=== PATIENT | male | born 1955 | race Caucasian/White ===

== ENCOUNTER 2018-12-13 11:51 | Emergency (ER) | payer OTHER ==
[2018-12-13 12:09] VITALS: BP 158/94
--- NOTE | 2018-12-13 12:38 | EDM.PDOC ---
ED HPI GENERAL MEDICAL PROBLEM - General Chief Complaint: Upper Extremity Injury/Pain Stated Complaint: RIGHT ARM PAIN Time Seen by Provider: 12/13/18 12:06 Source of Information: Reports: Patient, RN Notes Reviewed History Limitations: Reports: No Limitations - History of Present Illness INITIAL COMMENTS - FREE TEXT/NARRATIVE: Patient is a 63-year-old male who presents to the ED for the evaluation of a red and swollen right wrist and elbow. The patient notes a history of gout. He states he went to bed last night just fine, and woke up with this swelling to his elbow and wrist. He denies any trauma or injury sustained yesterday. The patient states he uses the [place] [facility] for [place] care [place]. He denies any fevers or chills at this time, he states it is painful to move the joints in any particular motion at all. The joints are warm to the touch. - Related Data Allergies Allergy/AdvReac Type Severity Reaction Status Date / Time No Known Allergies Allergy Verified 06/03/16 14:53 Home Meds: Home Meds Allopurinol [Zyloprim] 100 mg PO DAILY 04/29/16 [History] Atenolol 100 mg PO DAILY 04/29/16 [History] Gemfibrozil 600 mg PO BID 04/29/16 [History] Omeprazole 20 mg PO DAILY 04/29/16 [History] atorvaSTATin Calcium [Atorvastatin Calcium] 10 mg PO BEDTIME 04/29/16 [History] glipiZIDE [Glucotrol] 5 mg PO BID 04/29/16 [History] metFORMIN HCl [Metformin HCl] 1,000 mg PO BID 04/29/16 [History] Acetaminophen/oxyCODONE [Percocet 325-5 MG] 1 tab PO Q4H PRN #20 tablet [Rx] predniSONE [Deltasone] 20 mg PO ASDIRECTED #15 tablet 12/13/18 [Rx] Past Medical History HEENT History: Reports: Impaired Vision Cardiovascular History: Reports: High Cholesterol, Hypertension Gastrointestinal History: Reports: GERD Genitourinary History: Reports: Renal Calculus, Other (See Below) Other Genitourinary History: adrenal gland tumor removal Musculoskeletal History: Reports: Fracture, Gout Other Musculoskeletal History: right ankle fracture. Endocrine/Metabolic History: Reports: Diabetes, Type II, Obesity/BMI 30+ Dermatologic History: Reports: Other (See Below) Other Dermatologic History: tumors removed underneath skin - Infectious Disease History Infectious Disease History: Reports: Chicken Pox, Measles - Past Surgical History HEENT Surgical History: Reports: Adenoidectomy, Oral Surgery, Tonsillectomy Endocrine Surgical History: Reports: Adrenal Gland Social & Family History - Family History Family Medical History: Noncontributory - Tobacco Use Smoking Status *Q: Never Smoker - Caffeine Use Caffeine Use: Reports: Coffee, Tea - Recreational Drug Use Recreational Drug Use: No - Living Situation & Occupation Living situation: Reports: , with Family Occupation: Employed Review of Systems - Review of Systems Review Of Systems: See Below Constitutional: Denies: Chills, Fever Eyes: Reports: No Symptoms Ears: Reports: No Symptoms Nose: Reports: No Symptoms Mouth/Throat: Reports: No Symptoms Respiratory: Reports: No Symptoms Cardiovascular: Reports: No Symptoms GI/Abdominal: Reports: No Symptoms Genitourinary: Reports: No Symptoms Musculoskeletal: Reports: Joint Pain (R wrist and elbow), Joint Swelling (R wrist and elbow) Skin: Reports: Erythema (Right wrist and elbow, with warmth and swelling noted) ED EXAM, GENERAL - Physical Exam Exam: See Below Exam Limited By: No Limitations General Appearance: Alert, WD/WN, No Apparent Distress Respiratory/Chest: No Respiratory Distress, Lungs Clear, Normal Breath Sounds, No Accessory Muscle Use, Chest Non-Tender Cardiovascular: Normal Peripheral Pulses, Regular Rate, Rhythm, No Murmur Peripheral Pulses: 3+: Radial (L), Radial (R) Extremities: Normal Inspection (Right wrist and elbow, with warmth, redness, and swelling noted), Normal Capillary Refill, Limited Range of Motion (of right wrist and elbow d/t pain, 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 No: Ecchymosis, Wound/Incision Course - Vital Signs Last Recorded V/S: Last Vital Signs Temp 98.5 F 12/13/18 12:06 Pulse 113 H 12/13/18 12:06 Resp 12 12/13/18 12:06 BP 158/94 H 12/13/18 12:06 Pulse Ox 96 12/13/18 12:06 - Re-Assessments/Exams Free Text/Narrative Re-Assessment/Exam: 12/13/18 12:56 Patient presents to the ED for evaluation of a red swollen and warm right wrist and elbow. His symptoms are consistent with gout at this time. We'll provide the patient with prescription for prednisone and discharge home with general recommendations. He should follow up with his primary care provider at the conclusion of the prednisone, he is understanding of this. Departure - Departure Time of Disposition: 12:35 Disposition: Home, Self-Care 01 Condition: Fair Clinical Impression: Gout attack Qualifiers: Gout site: multiple sites Gout etiology: unspecified cause Qualified Code(s): M10.9 - Gout, unspecified - Discharge Information *PRESCRIPTION DRUG MONITORING PROGRAM REVIEWED*: No *COPY OF PRESCRIPTION DRUG MONITORING REPORT IN PATIENT SARINA: No Prescriptions: predniSONE [Deltasone] 20 mg PO ASDIRECTED #15 tablet Instructions: Gout, [id number] Referrals: Laurence Wahl MD [Primary Care Provider] - Forms: ED Department Discharge Additional Instructions: You have been evaluated in the ED today for your right wrist and elbow pain. Your symptoms are consistent with gout. You have been provided with a prescription for prednisone, please take as directed. This has been electronically sent to the [facility] pharmacy located near [facility]. They are open for noon to 4 PM today only. Recommend that you follow up at the [place] after the course of treatment to make sure that you do not need further treatment. Please take your other medications as previously prescribed by your primary care provider. Please return to the ED if your symptoms should change or worsen.
== END 2018-12-13 12:45 | disposition home or self-care (01) ==
LOC: JD.ED 11:51
DX: M10.9 Gout, unspecified (principal); E78.00 Pure hypercholesterolemia, unspecified; I10 Essential (primary) hypertension; K21.9 Gastro-esophageal reflux disease without esophagitis; E11.9 Type 2 diabetes mellitus without complications; Z79.84 Long term (current) use of oral hypoglycemic drugs; Z79.899 Other long term (current) drug therapy
CPT/HCPCS: 99283

== ENCOUNTER 2020-06-06 14:24 | Emergency (ER) | payer OTHER ==
--- NOTE | 2020-06-06 15:08 | EDM.PDOC ---
ED HPI GENERAL MEDICAL PROBLEM - General Chief Complaint: Respiratory Problem Stated Complaint: SOB [facility] Time Seen by Provider: 06/06/20 15:07 Source of Information: Reports: Patient History Limitations: Reports: No Limitations - History of Present Illness INITIAL COMMENTS - FREE TEXT/NARRATIVE: 64-year-old male presents to the ED at the request [facility] due to suspected cellulitis left foot and developing gangrene left fifth toe. Patient is a known type II diabetic for greater than 15 years and is known not to be very compliant with medication or diet. He reports he is never been on insulin. He denies having any pain in either foot. He walks with a wide type shoe. He started to feel unwell within the last 2 days. Noted fever but no defined chills. No appetite no nausea vomiting or diarrhea. Mild headache mild increased dyspnea with productive cough. Denies any chest pain. Patient is very warm to palpation on exam. He has not checked his blood sugars for several days. Onset: Gradual Onset Date: 06/04/20 (To feel unwell 2 days ago he believes with fever and weakness.) Duration: Day(s):, Getting Worse Location: Reports: Chest (Has a cough but denies any sputum production.), Lower Extremity, Left (Leg and erythema left lower extremity and obvious abnormality of the left great toe with swelling and blackening.) Quality: Reports: Other (Any significant pain in either lower extremity.) Severity: Moderate Improves with: Reports: None Worsens with: Reports: Other Context: Denies: Activity (Left foot pain with walking.), Exercise, Lifting, Sick Contact, Trauma, Other Associated Symptoms: Reports: Cough (Productive), Fever/Chills, Headaches, Loss of Appetite (Denies any chills but definite fever.), Malaise, Shortness of Breath, Weakness. 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: Reports: Other (see below) (None.) - Related Data Allergies Allergy/AdvReac Type Severity Reaction Status Date / Time No Known Allergies Allergy Verified 06/06/20 14:47 Home Meds: Home Meds Allopurinol [Zyloprim] 100 mg PO DAILY 04/29/16 [History] Gemfibrozil 600 mg PO BID 04/29/16 [History] Omeprazole 20 mg PO DAILY 04/29/16 [History] atenoloL [Atenolol] 100 mg PO DAILY 04/29/16 [History] atorvaSTATin Calcium [Atorvastatin Calcium] 10 mg PO BEDTIME 04/29/16 [History] glipiZIDE [Glucotrol] 5 mg PO BID 04/29/16 [History] metFORMIN HCl [Metformin HCl] 1,000 mg PO BID 04/29/16 [History] Acetaminophen/oxyCODONE [Percocet 325-5 MG] 1 tab PO Q4H PRN #20 tablet 06/03/16 [Rx] predniSONE [Deltasone] 20 mg PO ASDIRECTED #15 tablet 12/13/18 [Rx] Past Medical History HEENT History: Reports: Impaired Vision Cardiovascular History: Reports: High Cholesterol, Hypertension Gastrointestinal History: Reports: GERD Genitourinary History: Reports: Renal Calculus, Other (See Below) Other Genitourinary History: adrenal gland tumor removal Musculoskeletal History: Reports: Fracture, Gout Other Musculoskeletal History: right ankle fracture. Endocrine/Metabolic History: Reports: Diabetes, Type II (for > 15 years. Has always been on medication. Never insulin.), Obesity/BMI 30+ Dermatologic History: Reports: Other (See Below) Other Dermatologic History: tumors removed underneath skin - Infectious Disease History Infectious Disease History: Reports: Chicken Pox, Measles - Past Surgical History HEENT Surgical History: Reports: Adenoidectomy, Oral Surgery, Tonsillectomy Endocrine Surgical History: Reports: Adrenal Gland Social & Family History - Family History Family Medical History: No Pertinent Family History - Caffeine Use Caffeine Use: Reports: Coffee, Tea - Living Situation & Occupation Living situation: Reports: , with Family Occupation: Employed [employer] [facility] [employer] - Review of Systems Review Of Systems: See Below Constitutional: Reports: Fever, Malaise, Weakness, Fatigue, Decreased Appetite HEENT: Reports: Other (0 acuity waxes and wanes.) Respiratory: Reports: Shortness of Breath, Cough. Denies: Wheezing, Pleuritic Chest Pain, Sputum, Hemoptysis Cardiovascular: Reports: Blood Pressure Problem, Dyspnea on Exertion (Chronic edema both lower extremities.), Edema. Denies: Chest Pain (Nonproductive), Claudication, Lightheadedness, Orthopnea Endocrine: Reports: Fatigue GI/Abdominal: Reports: Other (Obesity. He believes he has had his gallbladder removed). Denies: Abdominal Pain : Reports: Frequency, Other (Sure you are x3.) Musculoskeletal: Reports: Joint Pain (Knees hips low back neck at times) Skin: Reports: Other (Parent redness swelling left foot and obvious discoloration left fifth toe) Neurological: Reports: Difficulty Walking (Due to left foot discomfort.). Denies: Confusion, Dizziness, Headache, Numbness, Syncope, Tingling Psychiatric: Reports: No Symptoms Hematologic/Lymphatic: Reports: No Symptoms Immunologic: Reports: No Symptoms ED EXAM, GENERAL - Physical Exam Exam: See Below Exam Limited By: No Limitations General Appearance: Alert, WD/WN, Anxious, Mild Distress, Other (Temperature is 37.3 but he feels much warmer than this on palpation. Heart rate at the bedside is 118/min sinus tachycardia on the monitor respiratory to 23 to 25/min with O2 sats of 96% room air BP 131/48.) Eye Exam: Bilateral Eye: Normal Inspection (No blepharal pallor or scleral icterus.) Ears: Normal TMs Throat/Mouth: Other (Tongue is dry and coated. The oropharynx is otherwise showing no signs of infection) Head: Atraumatic, Normocephalic, Other (Are no outward signs of head or facial trauma. Facial cheeks are flushed and warm to palpation) Neck: Normal Inspection, Limited Range of Motion (This on lateral rotation. Loss of 10 degrees lateral flexion). No: Carotid Bruit, Lymphadenopathy (L) ( and 5 degrees flexion.), Lymphadenopathy (R), Thyromegaly Respiratory/Chest: Chest Non-Tender, Respiratory Distress, Decreased Breath Sounds (Apnea at rest.), Rales ( Decreased breath sounds to the lower 30% lung fitzpatrick bilaterally.). No: Lungs Clear, Normal Breath Sounds ( Scattered crackles both lower lung fitzpatrick.) Cardiovascular: No Edema, No Gallop, No Murmur, No Rub, Tachycardia (Sinus tachycardia on the monitor.). No: Normal Peripheral Pulses Peripheral Pulses: 1+: Posterior Tibial (L), Posterior Tibial (R), Dorsalis Pedis (L), Dorsalis Pedis (R), 2+: Carotid (L), Carotid (R) GI/Abdominal: Normal Bowel Sounds, Soft, Non-Tender, No Organomegaly, No Distention, Other (Well-healed right upper quadrant surgical incision probably from a cholecystectomy done open. Patient is unsure. Patient's abdominal girth limits ability to palpate solid organs.). No: Guarding, Rigid, Rebound, Tender, Abnormal Bowel Sounds Back Exam: Normal Inspection, Full Range of Motion, Decreased Range of Motion (Complains of some pain on sitting him up on the gurney in his lower back.). No: CVA Tenderness (L), CVA Tenderness (R) Extremities: Other (Patient has 2-3+ pitting edema both lower extremities. Slightly worse on the left as compared to the right. He has an obvious cellulitis of the left lower extremity involving plantar surface of the foot dorsal surface of the foot and distal one third of the leg. There is marked edema and gangrene developing in the left fifth toe) Neurological: Alert, Oriented, CN II-XII Intact, Normal Cognition Psychiatric: Flat Affect Skin Exam: Warm, Erythema (Foot left foot with evidence of developing cellulitis), Increased Warmth #1 Interpretation EKG Date: 06/06/20 Time: 15:13 Rhythm: Other Rate (Beats/Min): 115 (Frequent unifocal PVCs in a bigeminal pattern.) Neoga: LAD-Left Neoga Deviation (Mild left axis deviation -9 degrees) P-Wave: Enlarged ST-T: Other (Mild ST segment depression in V5 and V6 and leads II and aVF concerning for apical inferior ischemia.) QT: Prolonged (Markedly prolonged) EKG Interpretation Comments: Abnormal ECG Course - Vital Signs Last Recorded V/S: Last Vital Signs Temp 37.3 C 06/06/20 14:42 Pulse 110 H 06/06/20 14:42 Resp 23 H 06/06/20 14:42 BP 131/48 L 06/06/20 14:42 Pulse Ox 96 06/06/20 14:42 - Orders/Labs/Meds Orders: Active Orders 24 hr Category Date Time Status Blood Glucose Check, Bedside [RC] ONETIME Care 06/06/20 15:21 Active EKG Documentation Completion [RC] STAT Care 06/06/20 15:15 Active EKG Documentation Completion [RC] STAT Care 06/06/20 18:03 Active CULTURE BLOOD [BC] Stat Lab 06/06/20 16:10 Received CULTURE BLOOD [BC] Stat Lab 06/06/20 16:18 Received GLUCOSE RANDOM [CHEM] Stat Lab 06/06/20 19:10 Ordered LACTIC ACID [CHEM] Stat Lab 06/06/20 19:08 Ordered URINALYSIS W/MICROSCOPIC [UA W/MICROSCOPIC] [URIN] Stat Lab 06/06/20 15:15 Ordered Magnesium Sulfate/Water [Magnesium Sulfate in Water Med 06/06/20 16:51 Active Premix] 4 gm Premix Bag 1 bag IV ONETIME Sodium Chloride 0.9% [Normal Saline] 1,000 ml Med 06/06/20 15:15 Active IV ASDIRECTED Sodium Chloride 0.9% [Normal Saline] 1,000 ml Med 06/06/20 18:15 Active IV ASDIRECTED Blood Culture x2 Reflex Set [OM.PC] Stat Oth 06/06/20 15:16 Ordered Medication Orders Sodium Chloride (Normal Saline) 1,000 mls @ 150 mls/hr IV ASDIRECTED [facility] Last Admin: 06/06/20 15:45 Dose: 150 mls/hr Documented by: [id number] Magnesium Sulfate 4 gm/ Premix 50 mls @ 12.5 mls/hr IV ONETIME ONE Stop: 06/06/20 20:50 Last Admin: 06/06/20 19:11 Dose: 12.5 mls/hr Documented by: [id number] Sodium Chloride (Normal Saline) 1,000 mls @ 500 mls/hr IV ASDIRECTED [facility] Last Admin: 06/06/20 19:11 Dose: 500 mls/hr Documented by: [id number] Labs: Laboratory Tests 06/06/20 06/06/20 06/06/20 Range/Units 15:36 15:36 15:36 WBC 8.82 (4.23-9.07) K/mm3 RBC 3.89 L (4.63-6.08) M/mm3 Hgb 10.1 L (13.7-17.5) gm/dl Hct 31.2 L (40.1-51.0) % MCV 80.2 D (79.0-92.2) fl MCH 26.0 (25.7-32.2) pg MCHC 32.4 (32.2-35.5) g/dl RDW Std Deviation 40.4 (35.1-43.9) fL Plt Count 190 (163-337) K/mm3 MPV 10.8 (9.4-12.3) fl Neutrophils % (Manual) 86 H (40-60) % Band Neutrophils % 5 (0-10) % Lymphocytes % (Manual) 5 L (20-40) % Atypical Lymphs % 0 % Monocytes % (Manual) 3 (2-10) % Eosinophils % (Manual) 1 (0.8-7.0) % Basophils % (Manual) 0 L (0.2-1.2) Toxic Granulation Few Platelet Estimate Adequate RBC Morph Comment Normal ESR (0-15) mm/hr PT 14.3 H (9.7-12.0) SECONDS INR 1.34 Sodium 128 L D (136-145) mEq/L Potassium 3.9 (3.5-5.1) mEq/L Chloride 95 L (98-107) mEq/L Carbon Dioxide 18 L (21-32) mEq/L Anion Gap 18.9 H (5-15) BUN 37 H (7-18) mg/dL Creatinine 3.9 H D (0.7-1.3) mg/dL Est Cr Clr Drug Dosing TNP Estimated GFR (MDRD) 16 (>60) mL/min BUN/Creatinine Ratio 9.5 L (14-18) Glucose 153 H (80-115) mg/dL POC Glucose (80-115) mg/dL Hemoglobin A1c (4.50-6.20) % Lactic Acid (0.4-2.0) mmol/L Uric Acid (3.5-7.2) mg/dL Calcium 8.0 L (8.5-10.1) mg/dL Magnesium 1.0 L (1.8-2.4) mg/dl Total Bilirubin 3.9 H (0.2-1.0) mg/dL AST 60 H (15-37) U/L ALT 28 (16-63) U/L Alkaline Phosphatase 153 H (46-116) U/L CK-MB (CK-2) (0-3.6) ng/ml Troponin I 0.311 H* (0.00-0.056) ng/mL C-Reactive Protein 47.4 H* (<1.0) mg/dL NT-Pro-B Natriuret Pep (0-125) pg/mL Total Protein 7.0 (6.4-8.2) g/dl Albumin 2.6 L (3.4-5.0) g/dl Globulin 4.4 gm/dL Albumin/Globulin Ratio 0.6 L (1-2) Ethyl Alcohol (0.00) gm% SARS-CoV-2 RNA (JEAN) (NEGATIVE) 06/06/20 06/06/20 06/06/20 Range/Units 15:36 15:36 15:36 WBC (4.23-9.07) K/mm3 RBC (4.63-6.08) M/mm3 Hgb (13.7-17.5) gm/dl Hct (40.1-51.0) % MCV (79.0-92.2) fl MCH (25.7-32.2) pg MCHC (32.2-35.5) g/dl RDW Std Deviation (35.1-43.9) fL Plt Count (163-337) K/mm3 MPV (9.4-12.3) fl Neutrophils % (Manual) (40-60) % Band Neutrophils % (0-10) % Lymphocytes % (Manual) (20-40) % Atypical Lymphs % % Monocytes % (Manual) (2-10) % Eosinophils % (Manual) (0.8-7.0) % Basophils % (Manual) (0.2-1.2) Toxic Granulation Platelet Estimate RBC Morph Comment ESR 65 H (0-15) mm/hr PT (9.7-12.0) SECONDS INR Sodium (136-145) mEq/L Potassium (3.5-5.1) mEq/L Chloride (98-107) mEq/L Carbon Dioxide (21-32) mEq/L Anion Gap (5-15) BUN (7-18) mg/dL Creatinine (0.7-1.3) mg/dL Est Cr Clr Drug Dosing Estimated GFR (MDRD) (>60) mL/min BUN/Creatinine Ratio (14-18) Glucose (80-115) mg/dL POC Glucose (80-115) mg/dL Hemoglobin A1c (4.50-6.20) % Lactic Acid 2.1 H* (0.4-2.0) mmol/L Uric Acid (3.5-7.2) mg/dL Calcium (8.5-10.1) mg/dL Magnesium (1.8-2.4) mg/dl Total Bilirubin (0.2-1.0) mg/dL AST (15-37) U/L ALT (16-63) U/L Alkaline Phosphatase (46-116) U/L CK-MB (CK-2) (0-3.6) ng/ml Troponin I (0.00-0.056) ng/mL C-Reactive Protein (<1.0) mg/dL NT-Pro-B Natriuret Pep 31098 H (0-125) pg/mL Total Protein (6.4-8.2) g/dl Albumin (3.4-5.0) g/dl Globulin gm/dL Albumin/Globulin Ratio (1-2) Ethyl Alcohol (0.00) gm% SARS-CoV-2 RNA (JEAN) (NEGATIVE) 06/06/20 06/06/20 06/06/20 Range/Units 15:36 15:36 15:36 WBC (4.23-9.07) K/mm3 RBC (4.63-6.08) M/mm3 Hgb (13.7-17.5) gm/dl Hct (40.1-51.0) % MCV (79.0-92.2) fl MCH (25.7-32.2) pg MCHC (32.2-35.5) g/dl RDW Std Deviation (35.1-43.9) fL Plt Count (163-337) K/mm3 MPV (9.4-12.3) fl Neutrophils % (Manual) (40-60) % Band Neutrophils % (0-10) % Lymphocytes % (Manual) (20-40) % Atypical Lymphs % % Monocytes % (Manual) (2-10) % Eosinophils % (Manual) (0.8-7.0) % Basophils % (Manual) (0.2-1.2) Toxic Granulation Platelet Estimate RBC Morph Comment ESR (0-15) mm/hr PT (9.7-12.0) SECONDS INR Sodium (136-145) mEq/L Potassium (3.5-5.1) mEq/L Chloride (98-107) mEq/L Carbon Dioxide (21-32) mEq/L Anion Gap (5-15) BUN (7-18) mg/dL Creatinine (0.7-1.3) mg/dL Est Cr Clr Drug Dosing Estimated GFR (MDRD) (>60) mL/min BUN/Creatinine Ratio (14-18) Glucose (80-115) mg/dL POC Glucose (80-115) mg/dL Hemoglobin A1c 8.50 H (4.50-6.20) % Lactic Acid (0.4-2.0) mmol/L Uric Acid 10.2 H (3.5-7.2) mg/dL Calcium (8.5-10.1) mg/dL Magnesium (1.8-2.4) mg/dl Total Bilirubin (0.2-1.0) mg/dL AST (15-37) U/L ALT (16-63) U/L Alkaline Phosphatase (46-116) U/L CK-MB (CK-2) 9.2 H (0-3.6) ng/ml Troponin I (0.00-0.056) ng/mL C-Reactive Protein (<1.0) mg/dL NT-Pro-B Natriuret Pep (0-125) pg/mL Total Protein (6.4-8.2) g/dl Albumin (3.4-5.0) g/dl Globulin gm/dL Albumin/Globulin Ratio (1-2) Ethyl Alcohol 0.00 (0.00) gm% SARS-CoV-2 RNA (JEAN) (NEGATIVE) 06/06/20 06/06/20 Range/Units 15:41 15:49 WBC (4.23-9.07) K/mm3 RBC (4.63-6.08) M/mm3 Hgb (13.7-17.5) gm/dl Hct (40.1-51.0) % MCV (79.0-92.2) fl MCH (25.7-32.2) pg MCHC (32.2-35.5) g/dl RDW Std Deviation (35.1-43.9) fL Plt Count (163-337) K/mm3 MPV (9.4-12.3) fl Neutrophils % (Manual) (40-60) % Band Neutrophils % (0-10) % Lymphocytes % (Manual) (20-40) % Atypical Lymphs % % Monocytes % (Manual) (2-10) % Eosinophils % (Manual) (0.8-7.0) % Basophils % (Manual) (0.2-1.2) Toxic Granulation Platelet Estimate RBC Morph Comment ESR (0-15) mm/hr PT (9.7-12.0) SECONDS INR Sodium (136-145) mEq/L Potassium (3.5-5.1) mEq/L Chloride (98-107) mEq/L Carbon Dioxide (21-32) mEq/L Anion Gap (5-15) BUN (7-18) mg/dL Creatinine (0.7-1.3) mg/dL Est Cr Clr Drug Dosing Estimated GFR (MDRD) (>60) mL/min BUN/Creatinine Ratio (14-18) Glucose (80-115) mg/dL POC Glucose 173 H (80-115) mg/dL Hemoglobin A1c (4.50-6.20) % Lactic Acid (0.4-2.0) mmol/L Uric Acid (3.5-7.2) mg/dL Calcium (8.5-10.1) mg/dL Magnesium (1.8-2.4) mg/dl Total Bilirubin (0.2-1.0) mg/dL AST (15-37) U/L ALT (16-63) U/L Alkaline Phosphatase (46-116) U/L CK-MB (CK-2) (0-3.6) ng/ml Troponin I (0.00-0.056) ng/mL C-Reactive Protein (<1.0) mg/dL NT-Pro-B Natriuret Pep (0-125) pg/mL Total Protein (6.4-8.2) g/dl Albumin (3.4-5.0) g/dl Globulin gm/dL Albumin/Globulin Ratio (1-2) Ethyl Alcohol (0.00) gm% SARS-CoV-2 RNA (JEAN) Negative (NEGATIVE) Meds: Medications Generic Name Dose Route Start Last Admin Trade Name Freq PRN Reason Stop Dose Admin Sodium Chloride 1,000 mls @ 150 mls/hr 06/06/20 15:15 06/06/20 15:45 Normal Saline IV 150 mls/hr ASDIRECTED SUDHIR Administration Magnesium Sulfate 4 gm/ Premix 50 mls @ 12.5 mls/hr 06/06/20 16:51 06/06/20 19:11 IV 06/06/20 20:50 12.5 mls/hr ONETIME ONE Administration Sodium Chloride 1,000 mls @ 500 mls/hr 06/06/20 18:15 06/06/20 19:11 Normal Saline IV 500 mls/hr ASDIRECTED SUDHIR Administration Discontinued Medications Generic Name Dose Route Start Last Admin Trade Name Netta PRN Reason Stop Dose Admin Acetaminophen 975 mg 06/06/20 15:21 06/06/20 15:45 Tylenol PO 06/06/20 15:22 975 mg ONETIME ONE Administration Furosemide 80 mg 06/06/20 18:04 06/06/20 19:11 Lasix IVPUSH 06/06/20 18:05 80 mg NOW ONE Administration Linezolid 600 mg/ Premix 300 mls @ 300 mls/hr 06/06/20 15:40 06/06/20 17:56 IV 06/06/20 16:39 300 mls/hr ONETIME ONE Administration Metronidazole 500 mg/ Premix 100 mls @ 100 mls/hr 06/06/20 15:42 06/06/20 16:23 IV 06/06/20 16:41 100 mls/hr ONETIME ONE Administration - Radiology Interpretation Free Text/Narrative:: 64-year-old male presents to the ED at the request of the [facility] here in [place]. Patient is a known type II diabetic who is noncompliant with treatment. He has had diabetes for greater than 15 years. Always treated with oral meds and never insulin. He presented to the clinic today due to fever chills and red swollen left foot. It is quite obvious that he has developed a cellulitis of the entire left lower foot and developing gangrene of the left fifth toe. He claims that he can still walk fairly normally with his wide [place] shoes denies neuropathy or pain in the lower extremity suggesting that he does not fact have peripheral neuropathy. He is febrile. He will require septic work-up. Blood cultures x2 including lactic acid. Covid screen chest x- ray urinalysis. He will be given Zosyn 600mg IV as soon as blood cultures x2 have been collected. Due to necrosis of the left fifth toe he will also be treated for possible anaerobic infection. Flagyl 500 mg IV. X-rays of the left foot to be obtained as well. She will require admission to hospital either here or elsewhere. It appears that he is likely going to need resection of the left toe once the infection comes under control. - Re-Assessments/Exams Free Text/Narrative Re-Assessment/Exam: 06/06/20 16:50 White count is normal at 8.82 however the differential reveals 86% neutrophils and 5% bands cells. Hemoglobin is low at 10.1 with hematocrit of 31.2. Platelet count normal 190,000. Sed rate is 65. PT is 14.3 with an INR of 1.34 i.e. auto anticoagulated. Sodium is low at 128 with a potassium of 3.9. Chloride is 95 with a bicarb of 18. Anion gap is elevated at 18.9. BUN is 37 with a creatinine of 3.9 and a GFR of only 16 i.e. stage IV chronic renal insufficiency. Glucose at the bedside is 173 in the lab was 153. Hemoglobin A1c is 8.50. Lactic acid is minimally elevated at 2.1. Uric acid is markedly elevated at 10.2 which may be contributing to renal insufficiency due to interstitial nephritis. Calcium is 8.0 with a magnesium low at 1.0. Bilirubin elevated at 3.9 with an AST of 60 and an ALT of 28. Alk phos today is elevated 153. Troponin I is elevated at 0.311 C-reactive protein 47.4 BNP 13,347 total protein is 7.0 with an albumin fraction low at 2.6 blood alcohol is 0.00 COVID- 19 screen is negative. 06/06/20 17:12 plain x-ray of the left foot has been completed. It reveals soft tissue air noted within the fifth digit. Findings are most likely due to prominent infection. Difficult to exclude underlying osteomyelitis. Scattered degenerative change within other toes are noted. Joint space narrowing is scattered within the midfoot. Diffuse soft tissue swelling is noted. Chest x- ray reveals heart size and mediastinum to be upper limits of normal for portable technique. Central lung markings slightly increased on the left side possibly due to pulmonary vascular congestion and less likely bronchitis. Lungs are otherwise clear other than scarring within the right lung base. 06/06/20 18:16 I have spoken with the patient and indicated that he has significant infection in his left fifth toe highly suggestive of bone infection or osteomyelitis and is likely going to lose the toe. The problem is he has multiple comorbidities with renal insufficiency, severe congestive heart failure, cellulitis of the left lower extremity that is going to have to be improved before he is a candidate for any kind of surgery. He remains very high risk. He therefore will have to be sent to a larger center and I did speak with Dr. Lomax--on-call hospitalist at [facility] in [place] and he is graciously accepted care of this patient. 06/06/20 19:18 I have ordered a repeat lactic acid and random glucose at this time. Paramedics will be her to transfer the patient to [place] by ground ambulance at approximately 1930 hrs. Departure - Departure Time of Disposition: 19:18 Disposition: DC/Tfer to [facility] 02 Condition: Serious Clinical Impression: Cellulitis of left lower extremity, Cellulitis of left foot, Gangrene of toe of left foot, Congestive heart failure, Lactic acidosis Type 2 diabetes mellitus Qualifiers: Diabetes mellitus supervisor intermediates insulin use: without supervisor intermediates use Diabetes mellitus complication status: with circulatory complication Diabetes mellitus complication detail: with peripheral angiopathy with gangrene Qualified Code(s): E11.52 - Type 2 diabetes mellitus with diabetic peripheral angiopathy with gangrene - Discharge Information *PRESCRIPTION DRUG MONITORING PROGRAM REVIEWED*: Not Applicable Referrals: Laurence Wahl MD [Primary Care Provider] - Forms: ED Department Discharge Additional Instructions: 64-year-old male presents to the ED with obvious severe cellulitis involving his left foot and lower extremity with a fever. Patient has multiple comorbidities including congestive heart failure. Renal insufficiency stage IV. Discovered to have mild lactic acidosis. Type 2 diabetes fairly well controlled. Early gangrene development left fifth toe. Due to multiple comorbidities and need for improvement in multiple modalities before he can become a surgical candidate to have the left toe removed he was sent to [facility] in [place] for definitive medical and surgical management. Sepsis Event Note (ED) - Evaluation Sepsis Screening Result: Possible Sepsis Risk - Focused Exam Vital Signs: Vital Signs Temp Pulse Resp BP Pulse Ox 06/06/20 14:42 37.3 C 110 H 23 H 131/48 L 96 - My Orders Last 24 Hours: My Active Orders 06/06/20 15:15 EKG Documentation Completion [RC] STAT URINALYSIS W/MICROSCOPIC [UA W/MICROSCOPIC] [URIN] Stat Sodium Chloride 0.9% [Normal Saline] 1,000 ml IV ASDIRECTED 06/06/20 15:16 Blood Culture x2 Reflex Set [OM.PC] Stat 06/06/20 15:21 Blood Glucose Check, Bedside [RC] ONETIME 06/06/20 16:10 CULTURE BLOOD [BC] Stat 06/06/20 16:18 CULTURE BLOOD [BC] Stat 06/06/20 16:51 Magnesium Sulfate/Water [Magnesium Sulfate in Water Premix] 4 gm Premix Bag 1 bag IV ONETIME 06/06/20 18:03 EKG Documentation Completion [RC] STAT 06/06/20 18:15 Sodium Chloride 0.9% [Normal Saline] 1,000 ml IV ASDIRECTED 06/06/20 19:08 LACTIC ACID [CHEM] Stat 06/06/20 19:10 GLUCOSE RANDOM [CHEM] Stat - Assessment/Plan Last 24 Hours: My Active Orders 06/06/20 15:15 EKG Documentation Completion [RC] STAT URINALYSIS W/MICROSCOPIC [UA W/MICROSCOPIC] [URIN] Stat Sodium Chloride 0.9% [Normal Saline] 1,000 ml IV ASDIRECTED 06/06/20 15:16 Blood Culture x2 Reflex Set [OM.PC] Stat 06/06/20 15:21 Blood Glucose Check, Bedside [RC] ONETIME 06/06/20 16:10 CULTURE BLOOD [BC] Stat 06/06/20 16:18 CULTURE BLOOD [BC] Stat 06/06/20 16:51 Magnesium Sulfate/Water [Magnesium Sulfate in Water Premix] 4 gm Premix Bag 1 bag IV ONETIME 06/06/20 18:03 EKG Documentation Completion [RC] STAT 06/06/20 18:15 Sodium Chloride 0.9% [Normal Saline] 1,000 ml IV ASDIRECTED 06/06/20 19:08 LACTIC ACID [CHEM] Stat 06/06/20 19:10 GLUCOSE RANDOM [CHEM] Stat
[2020-06-06] MEDS ORDERED: Sodium Chloride 0.9% 1,000 ML IV SCH ×2 (15:15→18:15)
[2020-06-06] MEDS ORDERED: Acetaminophen 325 MG Tab PO ONE (15:21)
[2020-06-06] MEDS ORDERED: Linezolid 600 MG in Premix Bag 1 BAG IV ONE (15:40)
[2020-06-06] MEDS ORDERED: metroNIDAZOLE/Normal Saline 500 MG in Premix Bag 1 BAG IV ONE (15:42)
[2020-06-06 16:07] LABS: HEMOGLOBIN A1C 8.5 % (4.50-6.20)
--- NOTE | 2020-06-06 16:33 | CR ---
Left foot: 3 views left foot were obtained. Comparison: No previous study. Findings: Soft tissue air is noted within the fifth digit. Findings are most likely due to prominent infection. Difficult to exclude underlying osteomyelitis. Scattered degenerative change within other toes are noted. Disc space narrowing is scattered within the midfoot. Diffuse soft tissue swelling is noted. Impression: 1. Soft tissue air within the fifth digit. Findings most likely due to prominent infection. Difficult to exclude underlying osteomyelitis with the fifth toe. 2. Other degenerative change as noted above. 3. Diffuse soft tissue swelling. Diagnostic code #3
--- NOTE | 2020-06-06 16:37 | CR ---
Chest: Portable view of the chest was obtained. Comparison: Prior chest x-ray of 04/29/16. Heart size and mediastinum are within normal limits for portable technique. Central lung markings slightly increased on the left side possibly due to mild pulmonary vascular congestion or bronchitis. Lungs otherwise are clear other than slight scarring within the right lung base. Bony structures are grossly intact. Impression: 1. Slight increased perihilar markings on the left side. This is either due to asymmetric pulmonary vascular congestion or bronchitis. 2. No additional abnormality is appreciated. Diagnostic code #3
[2020-06-06] MEDS ORDERED: Magnesium Sulfate/Water 4 GM in Premix Bag 1 BAG IV ONE (16:51)
[2020-06-06] MEDS ORDERED: Furosemide 40 MG/4 ML VIAL IVPUSH ONE (18:04)
[2020-06-06 19:56] VITALS: BP 94/57; PULSE 93
== END 2020-06-06 19:40 ==
LOC: JD.ED 14:24
DX: E11.52 Type 2 diabetes mellitus with diabetic peripheral angiopathy with gangrene (principal); L03.116 Cellulitis of left lower limb; I50.9 Heart failure, unspecified; E87.2 Acidosis; E78.00 Pure hypercholesterolemia, unspecified; K21.9 Gastro-esophageal reflux disease without esophagitis; M10.9 Gout, unspecified; E66.9 Obesity, unspecified; Z79.84 Long term (current) use of oral hypoglycemic drugs; Z79.899 Other long term (current) drug therapy; Z20.828 Contact with and (suspected) exposure to other viral communicable diseases
CPT/HCPCS: 36415; 71045; 73630; 80053; 80307; 82553; 82947; 82962; 83036; 83605; 83735; 83880; 84484; 84550; 85007; 85027; 85610; 85652; 86140; 87040; 87635; 93005; 96365; 96366; 96367; 96375; 99285; A9270; J1940; J2020; J3475; J3490; J7030; U0002

== ENCOUNTER 2021-10-29 08:51 | Day surgery (SDC) | payer OTHER ==
[~2021-10-29 08:51] MED LIST: Lactated Ringers 1,000 ML IV SCH; Lidocaine 1%/Sod Bicarbonate in NS 8.4% 1 ML Syringe IDERM PRN; Midazolam 1 MG/ML 2 ML SDV ONE; Propofol 200 MG/20 ML SDV ONE; Sodium Chloride 0.9% 10 ML Syringe FLUSH PRN; Sodium Chloride 0.9% 10 ML Syringe FLUSH SCH
[2021-10-29] MEDS ORDERED: Ondansetron 4 MG/2 ML SDV IVPUSH PRN (08:59)
[2021-10-29] MEDS ORDERED: Lidocaine 1% 4 ML ONE (09:40)
[2021-10-29 10:45] VITALS: BP 127/74; PULSE 68
== END 2021-10-29 11:13 | disposition home or self-care (01) ==
LOC: JD.SDS 08:51
PROVIDERS: ATTEND Surgery
DX: Z12.11 Encounter for screening for malignant neoplasm of colon (principal); D12.4 Benign neoplasm of descending colon; D12.5 Benign neoplasm of sigmoid colon; I25.10 Atherosclerotic heart disease of native coronary artery without angina pectoris; E78.5 Hyperlipidemia, unspecified; I10 Essential (primary) hypertension; I48.0 Paroxysmal atrial fibrillation; E11.9 Type 2 diabetes mellitus without complications; E66.9 Obesity, unspecified; E78.00 Pure hypercholesterolemia, unspecified; Z98.84 Bariatric surgery status; Z80.0 Family history of malignant neoplasm of digestive organs; Z90.49 Acquired absence of other specified parts of digestive tract; Z98.890 Other specified postprocedural states; Z88.8 Allergy status to other drugs, medicaments and biological substances
CPT/HCPCS: 45380; 82947; J2250; J2704; J7120

== ENCOUNTER 2022-06-12 15:33 | Emergency (ER) | payer OTHER ==
[2022-06-12] MEDS ORDERED: Sodium Chloride 0.9% 10 ML Syringe FLUSH PRN (16:15)
[2022-06-12] MEDS ORDERED: Aspirin 81 MG Tab.Chew PO ONE (16:15)
[2022-06-12] MEDS ORDERED: Aspirin 81 MG Tab.Chew ONE (18:34)
[2022-06-12 18:42] VITALS: BP 140/103; PULSE 105
== END 2022-06-12 18:42 | disposition home or self-care (01) ==
LOC: JD.ED 15:33
DX: R07.89 Other chest pain (principal); I25.10 Atherosclerotic heart disease of native coronary artery without angina pectoris; E78.00 Pure hypercholesterolemia, unspecified; I10 Essential (primary) hypertension; E11.9 Type 2 diabetes mellitus without complications; E66.9 Obesity, unspecified; Z68.34 Body mass index [BMI] 34.0-34.9, adult; Z88.8 Allergy status to other drugs, medicaments and biological substances; Z91.048 Other nonmedicinal substance allergy status; Z79.899 Other long term (current) drug therapy; Z79.84 Long term (current) use of oral hypoglycemic drugs; Z79.82 Long term (current) use of aspirin; Z79.01 Long term (current) use of anticoagulants; Z90.49 Acquired absence of other specified parts of digestive tract
CPT/HCPCS: 36415; 71045; 80053; 84484; 85025; 93005; 99285; A9270

== ENCOUNTER 2023-03-26 11:04 | Emergency (ER) | payer OTHER ==
[2023-03-26] MEDS ORDERED: Acetaminophen 325 MG Tab PO ONE (12:15)
[2023-03-26 13:39] VITALS: BP 109/69; PULSE 61
== END 2023-03-26 12:58 | disposition home or self-care (01) ==
LOC: JD.ED 11:04
DX: S09.90XA Unspecified injury of head, initial encounter (principal); S51.812A Laceration without foreign body of left forearm, initial encounter; S80.01XA Contusion of right knee, initial encounter; I48.91 Unspecified atrial fibrillation; I25.10 Atherosclerotic heart disease of native coronary artery without angina pectoris; E78.00 Pure hypercholesterolemia, unspecified; I10 Essential (primary) hypertension; E11.9 Type 2 diabetes mellitus without complications; E66.9 Obesity, unspecified; Z95.5 Presence of coronary angioplasty implant and graft; Z79.01 Long term (current) use of anticoagulants; Z79.84 Long term (current) use of oral hypoglycemic drugs; Z79.82 Long term (current) use of aspirin; Z79.899 Other long term (current) drug therapy; Z91.048 Other nonmedicinal substance allergy status; Z68.35 Body mass index [BMI] 35.0-35.9, adult; V49.40XA Driver injured in collision with unspecified motor vehicles in traffic accident, initial encounter; Y92.411 Interstate highway as the place of occurrence of the external cause
CPT/HCPCS: 70450; 70450-26; 73562-26-RT; 73562-RT; 99283; 99285

== ENCOUNTER 2023-11-18 18:20 | Emergency (ER) | payer MEDICARE, MEDICAID ==
[2023-11-18 18:48] LABS: BASOPHILS PERCENT AUTO 0.5 % (0.0-1.0); EOSINOPHILS ABSOLUTE AUTO 0.2 K/mm3 (0.0-0.4); EOSINOPHILS PERCENT AUTO 2.4 % (0.0-6.0); HEMATOCRIT 41.4 % (42.0-52.0); HEMOGLOBIN 13.7 gm/dl (14.0-18.0); IMMATURE GRAN ABSOLUTE AUTO 0.04 K/mm3 (0.00-0.05); IMMATURE GRAN PERCENT AUTO 0.5 % (0.0-0.4); LYMPHOCYTES ABSOLUTE AUTO 2.1 K/mm3 (1.0-4.8); LYMPHOCYTES PERCENT AUTO 24.4 % (24.0-44.0); MEAN CORPUSCULAR HEMOGLOBIN 28.4 pg (28.0-32.0); MEAN CORPUSCULAR HGB CONC 33.1 g/dl (32.0-36.0); MEAN CORPUSCULAR VOLUME 85.9 fl (83.0-99.0); MEAN PLATELET VOLUME 11.7 fl (9.4-12.4); MONOCYTES ABSOLUTE AUTO 0.4 K/mm3 (0.0-0.8); MONOCYTES PERCENT AUTO 4.1 % (0.0-8.0); NEUTROPHILS PERCENT AUTO 68.1 % (41.0-71.0); PLATELET COUNT,PLT 145 K/mm3 (150-400); RED BLOOD CELL COUNT 4.82 M/mm3 (4.52-5.90); WHITE BLOOD CELL COUNT,WBC 8.73 K/mm3 (3.9-11.3)
[2023-11-18 18:54] LABS: INR 0.97; PROTHROMBIN TIME 10.4 SECONDS (9.7-12.0)
[2023-11-18 18:55] LABS: D-DIMER QUANTITATIVE 0.26 mg/L (0.19-0.50)
[2023-11-18 18:56] LABS: PTT,PARTIAL THROMBOPLSTIN TIME 30.8 SECONDS (21.7-31.4)
[2023-11-18 19:07] LABS: A/G RATIO 1.2 (1-2); ALBUMIN 3.7 g/dl (3.4-5.0); ANION GAP 12.3 (5-15); BILIRUBIN TOTAL 0.7 mg/dL (0.2-1.0); CALCIUM 8.5 mg/dL (8.5-10.1); EST CRCL DRUG DOSING (CG) 41.67 mL/min; MAGNESIUM 1.6 mg/dL (1.8-2.4); POTASSIUM,K 4.3 mEq/L (3.5-5.1); PROTEIN TOTAL,TP 6.8 g/dl (6.4-8.2)
[2023-11-18 20:17] VITALS: BP 159/59; PULSE 80
== END 2023-11-18 20:10 | disposition home or self-care (01) ==
LOC: JD.ED 18:20
DX: R20.0 Anesthesia of skin (principal); I10 Essential (primary) hypertension; E11.9 Type 2 diabetes mellitus without complications; E78.00 Pure hypercholesterolemia, unspecified; I48.91 Unspecified atrial fibrillation; K21.9 Gastro-esophageal reflux disease without esophagitis; Z95.0 Presence of cardiac pacemaker; Z91.018 Allergy to other foods; Z88.8 Allergy status to other drugs, medicaments and biological substances; Z79.82 Long term (current) use of aspirin; Z79.01 Long term (current) use of anticoagulants; Z79.899 Other long term (current) drug therapy; Z90.49 Acquired absence of other specified parts of digestive tract
CPT/HCPCS: 36415; 71045; 71045-26; 80053; 83735; 83880; 84484; 85025; 85379; 85610; 85730; 93005; 93010; 99283; 99285